=== PATIENT | female | born 1965 | race Caucasian/White ===

== ENCOUNTER → 2016-10-05 | Outpatient (CLI) | payer MEDICARE, OTHER ==
[~2016-10-05] MED LIST: ALPRAZOLAM0.5 MG PO; CLINDAMYCIN HC300 MG PO; ELAVIL 50 MG TA50 MG PO; ENSURE ORIGINA237 ML PO; LOMOTIL TABLET1 EA PO; MULTIVITAMINS1 EAC1 PO; PERCOCET 10-321 EACH PO; PHENERGAN 25 MG25 M1 PO; PREDNISONE20 MG PO; PRILOSEC OTC20 MG PO; TESSALON PERLE100 MG PO; VENTOLIN/PROVE0.5 ML INH; VITAMIN B-1000 MCG/M IM; ZANTAC150 MG PO
[2016-10-05 13:12] LABS: HEMOGLOBIN 7.5 gm/dl (12.3-15.3); RED BLOOD COUNT 3.05 M/UL (4.00-5.10); WHITE BLOOD COUNT 15.9 K/UL (4.5-11.0)
[2016-10-05 13:29] LABS: BUN/CREATININE RATIO 38 (0-10)
== END ==
LOC: OPSV 11:57
PROVIDERS: Internal Medicine
DX: K50.90 Crohn's disease, unspecified, without complications (principal)
CPT/HCPCS: 36415; 80053; 85025; 86140; 96365; J3380

== ENCOUNTER → 2016-12-23 | Outpatient (CLI) | payer MEDICARE, OTHER ==
[~2016-12-23] VITALS: Ht 162.6 cm; Wt 36.3 kg
[2016-12-23 13:43] LABS: HEMOGLOBIN 8.1 gm/dl (12.3-15.3); RED BLOOD COUNT 3.83 M/UL (4.00-5.10); WHITE BLOOD COUNT 14.4 K/UL (4.5-11.0)
[2016-12-23 13:52] LABS: BUN/CREATININE RATIO 54 (0-10)
== END ==
LOC: OPSV 10:00
PROVIDERS: Internal Medicine
DX: K50.90 Crohn's disease, unspecified, without complications (principal)
CPT/HCPCS: 36415; 80053; 85025; 86140; 96365; J3380